=== PATIENT | male | born 1985 | race Caucasian/White ===

== ENCOUNTER 2016-06-30 14:11 | Emergency (ER) | payer OTHER ==
--- NOTE | ~2016-06-30 | CR63 ---
[facility] A Service of [facility] & [facility] RADIOLOGY TEXT RESULTS PATIENT: IVAN GARCIA LOCATION: [facility] : 89 UNIT #: [id number] AGE: [address]: Gary Torres MD SEX: M ORDER DR: [id number] [facility] [address] [place], [place] [address] [id number] MR#: [id number] Acc #: [id number] NAME: IVAN GARCIA : 1985 SEX: M STUDY DATE/TIME: 06/30/2016 14:12 UNIT: [facility] ROOM: STUDY DESCRIPTION: CR Chest 2 View Attending Physician: Gary Torres M.D. Ordering Physician: Gary Torres M.D. Primary Care Physician: Primary Care Physician No MEDICAL IMAGING REPORT This report is preliminary unless electronic signature is present EXAM Chest, 06/30/2016 HISTORY 30-year-old male cough, fever, weakness, nausea and vomiting. Symptoms 6 days duration. COMPARISON None FINDINGS Two-view chest demonstrates normal heart size. Aorta is mildly ectatic. Left lung is clear. Multisegmental infiltrates are noted on the right involving right lower lobe and right middle lobe. IMPRESSION Multisegmental pneumonia right lung. No comparison studies. Dictated by... Teddy Garnett M.D. THIS IS AN ELECTRONICALLY VERIFIED REPORT Teddy Garnett M.D. at 07/01/2016 10:53 AM Daron TD: 06/30/2016 16:03 JOB #: [id number] MEDICAL IMAGING REPORT Page 1 of 1 COPY
[2016-06-30 14:06] LABS: INFLUENZA A NEG (NEG); INFLUENZA B NEG (NEG)
[~2016-06-30 14:11] MED LIST: ERYTHROMYCIN O3.5 GM OD; FLEXERIL PO; PERCOCET7.5 PO; SILVADENE TOP; ULTRAM PO
[2016-06-30 14:24] LABS: BASOPHIL% 0.3 % (0-2.5); HEMATOCRIT 41.1 % (38.0-50.0); HEMOGLOBIN 14.1 gm/dL (13.0-16.0); LYMPHOCYTE# 0.7 X10e3 (1.0-3.5); LYMPHOCYTE% 25.2 % (17.0-45.0); MEAN CELL VOLUME 87.2 FL (83-96); MEAN CORPUSCULAR HEMOGLOBIN 29.9 PG (28-34); MEAN CORPUSCULAR HGB CONC 34.3 g/dL (30-36); MEAN PLATELET VOLUME 7.5 FL (6.5-11.5); MONOCYTE# 0.2 X10e3 (0-1.0); MONOCYTE% 7.4 % (3.0-12.0); NEUTROPHIL# 1.8 X10e3 (1.5-7.1); NEUTROPHIL% 67.1 % (40-75); PLATELET COUNT 93 X10e3 (140-420); RED BLOOD COUNT 4.72 X10e (3.90-5.60); RED CELL DISTRIBUTION WIDTH 12.8 % (11.0-15.5); WHITE BLOOD COUNT 2.6 X10e3 (4.0-10.5)
[2016-06-30 14:38] LABS: DIFF IND YES
[2016-06-30 14:56] LABS: ALBUMIN SERUM 3.8 g/dL (3.5-5.0); BILIRUBIN, DIRECT 0.1 mg/dL (0.0-0.2); BILIRUBIN,INDIRECT 0.5 mg/dL (0.0-0.9); BILIRUBIN,TOTAL 0.6 mg/dL (0.2-2.0); CALCIUM SERUM 8.6 mg/dL (8.4-10.2); POTASSIUM 3.8 mmol/L (3.5-5.1); PROTEIN TOTAL SERUM 7.3 g/dL (6.0-8.3)
[2016-06-30 14:56] LABS: URINE SOURCE CLEAN CATCH
[2016-06-30 15:03] LABS: ANISOCYTOSIS SL; PLATELET ESTIMATE DECREASED (NORMAL)
[2016-06-30 15:41] LABS: URINE APPEARANCE CLEAR; URINE BILIRUBIN NEG (NEG); URINE BLOOD TRACE (NEG); URINE COLOR YELLOW; URINE GLUCOSE NEG (NEG); URINE KETONE TRACE (NEG); URINE LEUKOCYTE ESTERASE NEG (NEG); URINE NITRATE NEG (NEG); URINE PROTEIN TRACE (NEG); URINE SPECIFIC GRAVITY 1.021 (1.003-1.035); URINE UROBILINOGEN 0.2 MG/DL (NEG)
[2016-06-30 15:44] LABS: U HYALINE CASTS AUWI 0-2 /[LPF]; URINE BACTERIA AUWI NEG (NEGATIVE); URINE SQUAMOUS EPITHELIAL CELL NONE SEEN /[HPF]; UWBCS1 AUWI 0-2 (0-5)
[2016-06-30 15:46] LABS: CULTURE INDICATED? NO
== END 2016-06-30 16:54 | disposition home or self-care (01) ==
LOC: CED 14:11
PROVIDERS: Emergency Medicine
DX: J18.9 Pneumonia, unspecified organism (principal); Z79.899 Other long term (current) drug therapy
CPT/HCPCS: 36415; 71020; 80048; 80076; 81003; 83605; 83690; 85025; 87651; 87804; 96365; 99284; J2405